=== PATIENT | female | born 1950 | race Hispanic/Latino ===

== ENCOUNTER → 2020-06-21 08:09 | Outpatient (CLI) | payer MEDICARE, SELFPAY ==
[2020-06-21] MEDS: COVID-19 VACC #1, MRNA(MOD) 100 MCG/0.5 ML VIAL IM (08:18)
== END ==
PROVIDERS: Visit Provider Internal Medicine
DX: Z23 Encounter for immunization (principal)
CPT/HCPCS: 0011A; 91301

== ENCOUNTER → 2020-07-19 08:02 | Outpatient (CLI) | payer MEDICARE, SELFPAY ==
[2020-07-19] MEDS: COVID-19 VACC #2, MRNA(MOD) 100 MCG/0.5 ML VIAL IM (08:08)
== END ==
PROVIDERS: Visit Provider Internal Medicine
DX: Z23 Encounter for immunization (principal)
CPT/HCPCS: 0012A; 91301

== ENCOUNTER → 2022-09-27 12:09 | Outpatient (CLI) | payer MEDICARE, OTHER, SELFPAY ==
[2022-09-27 13:49] LABS: Add Manual Diff / Slide Review NO; Basophils Absolute Auto 0 /uL (0-100); Eosinophils Absolute Auto 100 /uL (0-450); Eosinophils Percent Auto 2.4 % (2-4); Hematocrit 40.3 % (36-46); Hemoglobin 13.4 g/dL (12.0-16.0); Lymphocytes Absolute Auto 1300 /uL (1100-4500); Lymphocytes Percent Auto 30.8 % (25-40); Mean Corpuscular HGB Conc 33.1 % (30-36); Mean Corpuscular Hemoglobin 28.6 PG (26-34); Mean Corpuscular Volume 86.4 fL (80-100); Monocytes Absolute Auto 300 /uL (0-900); Monocytes Percent Auto 7.8 % (3-14); Neutrophils Absolute Auto 2500 /uL (1500-7000); Platelet Count 241 X10^3/uL (150-400); Red Blood Cell Count 4.67 X10^6/uL (4.0-5.2); Red Cell Distribution Width 14.6 % (11.6-14.8); White Blood Cell Count 4.3 X10^3/uL (4.5-11.0)
[2022-09-27 14:26] LABS: BUN Creatinine Ratio 14.3 (6-22); Blood Urea Nitrogen 10 mg/dL (7-17); Carbon Dioxide 36 mmol/L (22-32); Chloride 100 mmol/L (98-107); Estimated Glomerular Filt Rate > 60 mL/min (>60); Glucose 67 mg/dL (80-110); HEMOLYSIS < 15 (0-50); Potassium 4.1 mmol/L (3.4-5.1); Sodium 140 mmol/L (137-145)
[2022-09-27 14:40] LABS: Appearance Urine UA CLEAR; Bilirubin Urine UA NEGATIVE (NEGATIVE); Color Urine UA YELLOW; Glucose Urine UA NEGATIVE (Negative); Ketones Urine UA NEGATIVE (NEGATIVE); Leukocyte Esterase Urine UA TRACE (NEGATIVE); Nitrite Urine UA NEGATIVE (Negative); Occult Blood Urine UA NEGATIVE (Negative); Protein Urine UA NEGATIVE (Negative); Specific Gravity Urine UA <=1.005 (1.000-1.035); Urobilinogen Urine UA 0.2 E.U./dL (0.2)
[2022-09-27 14:48] LABS: pH Urine UA 7.5 (4.5-8.0)
[2022-09-27 14:57] LABS: Bacteria Urine Few (2-10); Culture Indicated Urine Specimen Cultured; RBC Urine 1-5/HPF (0-5/HPF); Squamous Epithelial Cell Urine 1-5 /HPF (0-5/HPF); WBC Urine 1-5/HPF (0-5/HPF)
[2022-09-28 08:39] LABS: x Labcorp Estim. Avg Glu (eAG) 117 mg/dL (.); x Labcorp Hemoglobin A1c 5.7 % (4.8-5.6)
== END ==
PROVIDERS: PCP Physician Assistant Medical; Referring Provider Orthopaedic Surgery; Visit Provider Orthopaedic Surgery
DX: Z01.818 Encounter for other preprocedural examination (principal); R73.9 Hyperglycemia, unspecified; Z01.812 Encounter for preprocedural laboratory examination; N39.0 Urinary tract infection, site not specified
CPT/HCPCS: 36415; 80048; 81001; 83036; 85025; 87086; 93005; 93010

== ENCOUNTER 2022-10-29 08:21 | Day surgery (SDC) | payer MEDICARE, SELFPAY ==
[2022-10-21 09:39] VITALS: BMI 36.3
[2022-10-29] VITALS (13 sets, daily range): BP systolic 107–168; BP diastolic 51–83; PULSE 43–74; RESP 10–18; TEMP 36.2–36.5; O2SAT 95–100; BMI 34.9
--- NOTE | 2022-10-29 08:28 | DI.RAD.S_ITS ---
PROCEDURE: XR HIP W PEL IF DONE RT 2V INDICATIONS: DON TECHNIQUE: AP pelvis and lateral view of the right hip acquired. COMPARISON: None. FINDINGS: Bones: Patient is status post right hip arthroplasty, with hardware components in expected positions. The hip joint appears congruent. The visualized bony structures appear intact. Soft tissues: Overlying postoperative changes are noted. No suspicious soft tissue densities. IMPRESSION: Expected postsurgical change for right hip arthroplasty. Dictated by: Roselia Mason MD, PhD on 10/29/2022 at 15:04 Approved by: Roselia Mason MD, PhD on 10/29/2022 at 15:04
[2022-10-29] MEDS: VANCOMYCIN 1,000 MG/200 ML PIGGYBACK 200 MG IV (09:36)
[2022-10-29] MEDS: ACETAMINOPHEN 325 MG TABLET 975 MG PO (09:36)
[2022-10-29] MEDS: LACTATED RINGERS 1,000 ML 42 ML IV ×2 (09:36→12:23)
--- NOTE | 2022-10-29 10:45 | PM.PREOP ---
Pre-operative Note Interval Note History & Physical reviewed/Exam performed by Physician: Yes Changes to H&P: No
--- NOTE | 2022-10-29 10:46 | PM.OP.1 ---
Operative Date/Time/Diagnoses Date of procedure: 10/29/22 Time of procedure: 11:20 Pre-op diagnosis: Right hip OA Post-op diagnosis: same Procedure & Clinicians Procedure: Right total hip arthroplasty posterior approach Same procedure as scheduled: Yes Indications: The patient has had progressively worsening right hip pain with radiographic changes consistent with arthritis. Non-operative management has failed and the patient has requested total hip replacement. The risks, benefits and alternatives to surgery were discussed with the patient prior to proceeding. Risks discussed included, but were not limited to, failure to relieve pain, leg length discrepancy, dislocation, stiffness, infection, nerve damage, deep venous thrombosis, pulmonary embolism, stroke, coma, heart attack, permanent paralysis and , as well as the potential need for eventual revision of the prosthetic. Surgeon: Katelyn Aguilera Entertainer & Comic: Benjamin Argueta Anesthesia Type: Spinal Operative Notes Findings: Severe right hip osteoarthritis, adequate stability, Closure Type: primary Specimen(s): none sent Prosthetic devices, grafts, tissues, transplants, or devices: Aguilera and nephew R3 50, neutral poly liner, one 6.5 mm screw, 32 by -3 Oxinium head, size 3 polar stem standard with collar Estimated Blood Loss (mL): 250 Blood products transfused: none Procedure in detail: The patient was seen in the pre-operative area, where the patient identified the right hip as the operative site and this was marked with my initials. The patient received pre-operative antibiotics and was taken to the operating room and placed on the operative table in the left lateral decubitus position after satisfactory anesthesia. A fulling mill operator out was performed. The right leg was prepared from the ankle to the iliac crest with ChloroPrep in the usual fashion and draped through sterile drapes. A PA was used during the procedure and was essential for retraction and safe implantation of the components. They were also helpful for hemostasis an intraoperative positioning. The hip was approached through an approximately 20 cm incision centered over the greater trochanter and curving gently posteriorly as it went proximally. This was carried sharply to the fascia cata, which was divided and retracted with a self retaining retractor. The trochanteric bursa was excised with care being taken to avoid the sciatic nerve, which was identified and protected throughout the case. The short external rotators were incised and the capsulomuscular flap was raised and tagged for later repair. The hip was dislocated, and a femoral neck osteotomy performed approximately 15 mm above the lesser trochanter. Retractors were placed around the femur. The canal was opened with a box cutting osteotome, followed by a T handled reamer and a lateralizing reamer. The chili pepper broach was then used, followed by sequential broaching until there was good stability of the broach in the femur. Retractors were placed to expose the acetabulum. The labrum and central soft tissues were removed. Reaming was performed initially going up in 2 mm increments, then 1 mm increments until good bite was obtained with an odd sized reamer. The cup 1 mm larger than the last reamer was then inserted using the appropriate anteversion guides. It was further stabilized with a single screw. A trial neutral liner was placed. The broach was placed in the canal. A trial head and neck were then placed and the hip relocated and checked for leg length and stability. An intraoperative film confirmed the component position and no evidence of fracture. The patient was stable in the position of sleep, of squatting, and could be put through a range of motion with 45 degrees internal rotation without dislocation. At 90 degrees flexion, internal rotation to 70 was possible before dislocation. This was felt to be satisfactory and the appropriate components were opened, and the trials were removed. The acetabular liner was impacted into position. The final stem was then impacted into the prepared femoral canal. A brief Betadine soak was performed while trialing with head options. The hip was meticulously irrigated with normal saline. Finally the femoral head was impacted onto the stem. The acetabulum was cleared of all material and the hip relocated one final time. The capsulomuscular flap was then repaired to the greater trochanter though an awl hole using the tag sutures. The short external rotators were repaired with a nonabsorbable suture. The fascia cata was closed with Vicryl. The subcutaneous layer was closed with barbed sutures and skin oliver. A cesar dressing was applied and the patient was taken to recovery having tolerated the procedure well. Complications: none Post-operative Condition: stable Disposition: Acute Care Plan for aftercare: The patient will be maintained on a standard total hip replacement protocol with weight bearing as tolerated and posterior hip precautions. The patient will receive Aspirin and sequential compression devices for DVT prophylaxis. The patient will be discharged home when safe for the home environment.
--- NOTE | 2022-10-29 11:00 | DI.RAD.S_ITS ---
PROCEDURE: XR PELVIS 1-2V INDICATIONS: INNER OP RT HIP TECHNIQUE: Intra-operative view of the pelvis and hip acquired. COMPARISON: None. FINDINGS: Bones: Intraoperative devices prior to placement of arthroplasty prostheses are in expected positions. No fractures or suspicious bony lesions. Soft tissues: Overlying surgical retractors are present, along with other intraoperative changes. IMPRESSION: Intraoperative image shows right total hip arthroplasty in progress. Dictated by: Jareth Abrams M.D. on 10/29/2022 at 15:16 Approved by: Jareth Abrams M.D. on 10/29/2022 at 15:16
[2022-10-29] MEDS: CEFAZOLIN 2 GM/100 ML PREMIX 100 ML IV ×2 (11:35→20:10)
[2022-10-29] MEDS: TRANEXAMIC ACID 1,000 MG VIAL 2000 MG INJ ×2 (11:40→13:12)
--- NOTE | 2022-10-29 12:03 | SUR.OPER ---
Lateral on padded OR bed. Gel axillary roll. Arms secured on padded armboard with pillow supporting top arm. Padded hip positioner braces x4 - anterior and posterior chest and pelvis. Additional gel pad used anterior pelvis. Gel pad under bottom leg from knee to foot and secured with tape over sheet.
[2022-10-29] MEDS: SODIUM CHLORIDE IRRIG SOLUTION 250 ML, POVIDONE-IODINE SPONGE STICKS 1 APPLIC IRR (12:07)
[2022-10-29] MEDS: BUPIVACAINE LIPOSOME 266 MG/20 ML VIAL INJ (12:09)
[2022-10-29] MEDS: BUPIVACAINE 0.5% (PF) 30 ML VIAL INJ (12:10)
[2022-10-29] MEDS: EPINEPHrine 1 MG/ML TOP (12:18)
[2022-10-29] MEDS: ACETAMINOPHEN 325 MG TABLET 650 MG PO (16:52)
[2022-10-29] MEDS: IBUPROFEN 400 MG TABLET PO ×2 (16:53→20:13)
[2022-10-29] MEDS: OXYCODONE IR 5 MG TABLET PO (16:53)
[2022-10-29] MEDS: LACTATED RINGERS 1,000 ML 100 ML IV (17:01)
[2022-10-29] MEDS: ASPIRIN EC 81 MG TABLET PO (20:13)
[2022-10-30 01:29] VITALS: BP 154/76; PULSE 65; RESP 18; TEMP 37.3; O2SAT 97
[2022-10-30] MEDS: CEFAZOLIN 2 GM/100 ML PREMIX 100 ML IV (03:00)
[2022-10-30] MEDS: IBUPROFEN 400 MG TABLET PO ×2 (03:01→11:14)
[2022-10-30] MEDS: ACETAMINOPHEN 325 MG TABLET 650 MG PO ×2 (03:02→08:42)
[2022-10-30] MEDS: OXYCODONE IR 5 MG TABLET PO ×3 (03:02→11:14)
[2022-10-30 05:00] VITALS: BP 106/64; PULSE 72; RESP 18; TEMP 36.6; O2SAT 100
[2022-10-30 06:28] LABS: Hematocrit 35.3 % (36-46)
[2022-10-30 08:00] VITALS: BP 134/67; PULSE 60; RESP 16; TEMP 36.2; O2SAT 96
--- NOTE | 2022-10-30 08:31 | PM.DS.1 ---
History of Present Illness History of Present Illness Date Patient Seen: 10/30/22 Chief complaint: S/p R DON, posterior Narrative: Patient is resting comfortably in bed this morning. She complains of some pain to the right hip and thigh, though she states that her pain is well controlled with medication. She is looking forward to working with physical therapy, has been up to the commode with no issues. Patient would like to go home today if possible. Denies fever, chills, chest pain, shortness of breath, nausea, vomiting. Discharge Providers Provider Discharge Date: 10/30/22 Primary care physician: Nohemi Johnson PA-C Consults: 10/21/22 10:54 Consult to Anesthesiology Routine Comment: Consulting Provider: Anesthesiologist Reason for consultation: PAC courtesy re: Abnormal pre-op EKG 10/29/22 08:28 Consult to Anesthesiology Routine Comment: Consulting Provider: Anesthesiologist Reason for consultation: Regional block for post operative pain control 10/29/22 14:27 Consult to Discharge Planning Routine Comment: Consult to Occupational Therapy Evaluate & Treat Comment: Physician Instructions: Evaluate and treat Consult to Physical Therapy Evaluate & Treat Comment: Physician Instructions: post op DON protocol Discharge provider: Manasa Brizuela PA-C Summary Hospital Course Discharge Diagnosis: s/p R DON, posterior Hospital Course: Operative Date/Time/Diagnoses Date of procedure: 10/29/22 Time of procedure: 11:20 Pre-op diagnosis: Right hip OA Post-op diagnosis: same Procedure & Clinicians Procedure: Right total hip arthroplasty posterior approach Same procedure as scheduled: Yes Indications: The patient has had progressively worsening right hip pain with radiographic changes consistent with arthritis. Non-operative management has failed and the patient has requested total hip replacement. The risks, benefits and alternatives to surgery were discussed with the patient prior to proceeding. Risks discussed included, but were not limited to, failure to relieve pain, leg length discrepancy, dislocation, stiffness, infection, nerve damage, deep venous thrombosis, pulmonary embolism, stroke, coma, heart attack, permanent paralysis and , as well as the potential need for eventual revision of the prosthetic. Surgeon: Katelyn Aguilera Manager Integrated: Benjamin Argueta Anesthesia Type: Spinal Operative Notes Findings: Severe right hip osteoarthritis, adequate stability, Closure Type: primary Specimen(s): none sent Prosthetic devices, grafts, tissues, transplants, or devices: Aguilera and nephew R3 50, neutral poly liner, one 6.5 mm screw, 32 by -3 Oxinium head, size 3 polar stem standard with collar Estimated Blood Loss (mL): 250 Blood products transfused: none Status at Discharge Cognitive/behavioral status at discharge: oriented Functional status at discharge: uses cane/walker Overall status at discharge: patient is progressing back to baseline Exam Vital Signs (past 8 hours): - 10/30/22 01:29 10/30/22 05:00 Temperature 99.1 F 97.9 F Pulse Rate 65 72 Respiratory Rate 18 18 Blood Pressure 154/76 H 106/64 Pulse Oximetry 97 100 Oxygen Flow Rate 0 0 Oxygen Delivery Method Room Air Oxygen Flow Rate 0 Narrative Exam Narrative: Pleasant 72-year-old female. Awake, alert, and oriented. Intraoperative right hip bandage clean, dry, and intact. Mild pain to palpation of right hip and thigh. No appreciable erythema or bruising at this time. Strength and sensation intact to bilateral lower extremities. Bilateral calves soft, compressible, nontender with no palpable cords or masses. Objective Labs 10/30/22 06:15 Labs: Laboratory Results - last 24 hr 10/30/22 06:15 Hgb 12.0 Hct 35.3 L PFSH Medical History Anesthesia complication Borderline high blood pressure History of COVID-19 (09/2021) Osteoarthritis Sleep apnea Surgical History Hx of colonoscopy Hx of right breast biopsy (~2001) Social History household members: spouse Smoking Status: Never smoker alcohol intake: never Discharge Assessment & Plan Assessment and Plan Assessment: Patient is progressing as expected after right posterior total hip arthroplasty. Plan of Treatment: Plan to work with physical therapy today. Patient may discharge to home if safe and cleared by physical therapy. Continue multimodal pain regimen. Posterior hip precautions. Attending physical therapy as outpatient. Follow up with Orthopedics 2 weeks after surgery. Keep dressing clean, dry, and intact until this time. Discharge Plan Discharge Plan Patient Disposition: Home Provider Discharge Comment: Discharge if safe and cleared by PT Discharge orders & Medications Discharge Orders: Discharge (Order); Ordered 10/30/22 Ordered By: Manasa Brizuela Prescriptions: New oxycodone 5 mg Tablet 5 mg PO Q3H PRN (Reason: Pain, Moderate (4-6)) Qty: 40 0RF acetaminophen 325 mg Tablet 650 mg PO Q6H Qty: 120 0RF aspirin 81 mg Tablet,Delayed Release (Dr/Ec) 81 mg PO BID Qty: 84 0RF Changed ibuprofen 200 mg Tablet 400 mg PO Q4H PRN (Reason: Pain) Qty: 120 0RF Follow up/Referrals: Katelyn Aguilera MD [Physician] - As previously scheduled Nohemi Johnson PA-C [Primary Care Provider] - Diet/Activity/Treatments Diet: Diet as Tolerated Activity: Up and walking as tolerated. Posterior hip precautions. Cold/Heat Therapy: Ice to hip as needed Skin/Wound/Dressing Care Report to your healthcare provider any signs of infection, such as:: chills, fever, night sweats, unusual drainage and unusual redness Dressing: Keep dressing intact until 2 week follow up visit with orthopedics. If the dressing becomes saturated before that time please call our office for dressing change. Visit Report/Discharge Packet Instructions: DI for Hip Replacement, DI for Constipation, How to Prevent Falls Stand Alone Forms: Patient Portal/API, [facility] RAUL Drain, Surgery Discharge Discharge Data Primary Care Provider: Nohemi Johnson Attending Provider: Katelyn Aguilera
[2022-10-30] MEDS: ASPIRIN EC 81 MG TABLET PO (08:42)
[2022-10-30] MEDS: DOCUSATE 100 MG CAPSULE PO (08:43)
--- NOTE | 2022-10-30 09:43 | OT.IP.EVAL ---
Addendum entered and electronically signed by Jessica Bliss OT 10/30/22 12:29: edit Original Note: Current Diagnoses Unilateral primary osteoarthritis, right hip (10/29/22) Surgery Performed Operation Date: 10/29/22 10:45 Actual Procedures p Total Hip Arthroplasty(Right) - Katelyn Aguilera MD Past Medical History (Last Reviewed 10/30/22 @ 08:35 by Manasa Brizuela PA-C) Anesthesia complication Borderline high blood pressure History of COVID-19 (09/2021) Osteoarthritis Sleep apnea Surgical History (Last Reviewed 10/30/22 @ 08:35 by Manasa Brizuela PA-C) Hx of colonoscopy Hx of right breast biopsy (~2001) Occupational Therapy Inpatient Evaluation/Re-Eval M1 PT/OT-IP Prior Functional Status Start: 10/30/22 12:05 Freq: NEEDED Status: Active Protocol: Document 10/30/22 09:05 [facility] (Rec: 10/30/22 12:21 [facility] [id number]) Medical Review Prior Functional Status Medical History Reviewed Yes Diet/Fluid Consistency Regular Communication WNLs Mobility and Gait I Activities of Daily Living and IADL's Pt states had pain with ADl needs but able to do independently. Social History Household Members spouse Living Arrangements House Number of Floors (Floors) One Floor Number of Stairs To Enter/Railing? 3 platform steps and right rail to enter Home Environment High Toilet,Built-In Shower Seat Home Equipment Front Wheel Walker,Four Wheel Walker,Straight Cane,Bedside Commode,Shower Seat with Backrest,Hand Held Shower,Long Handled Sponge,Long Handled Shoe Horn,Technician Inventory Specialist,Sock Aid Employment Status Retired M2 OT-IP Current Condition Start: 10/30/22 12:05 Freq: Status: Active Protocol: Document 10/30/22 09:05 [facility] (Rec: 10/30/22 12:21 [facility] [id number]) Occupational Therapy Current Condition Current Condition Evaluation Date 10/30/22 Treatment Diagnosis S/P RTHA posterior approach Diagnosis Onset Date 10/29/22 Post Operative Precautions Posterior Hip Precautions No Hip Flexion > 90 degrees,No Hip Internal Rotation,No Hip Adduction M3 OT- IP Subjective and Pain Start: 10/30/22 12:05 Freq: Status: Active Protocol: Document 10/30/22 09:05 [facility] (Rec: 10/30/22 12:21 [facility] [id number]) OT- Subjective Occupational Therapy Visit Type Type Initial Evaluation Visit Start Time 09:05 Visit Stop Time 09:43 Total Visit Minutes 38 Occupational Therapy Visit Comments Patient Comments Pt agreed to get up and wanting to get dressed. Patient/Caregiver Goals To go home. OT Pain Assessment Pain When Pain Assessed At Rest Pain Present Pain Present Denied Pain M4 OT- IP ADL's Start: 10/30/22 12:05 Freq: Status: Active Protocol: Document 10/30/22 09:05 [facility] (Rec: 10/30/22 12:21 [facility] [id number]) OT [id number]-[id number]-[id number] General Evaluation Self-Feeding Ability Independent OT ADL-Grooming General Evaluation Grooming Ability Independent OT ADL-Oral Care Comments Oral Care Comments Not performed. OT ADL-Dressing General Eval Upper Body Dressing Ability Independent Lower Body Dressing Ability Standby Assistance Comments OT Dressing Comments Pt able to use the textile technical officer to assist to get dressed. OT ADL-Toileting General Evaluation Toileting Ability Standby Assistance Comments OT Toileting Comments Educated to pt to best to stand to wipe, use of wet one and to wear a pad/brief so not having to ruiz to the bathroom. OT ADL-Bathing Comments OT Bathing Comments Not performed. M5 OT- IP IADL's Start: 10/30/22 12:05 Freq: Status: Active Protocol: Document 10/30/22 09:05 [facility] (Rec: 10/30/22 12:21 [facility] [id number]) OT-Instrumental Activities of Daily Living Deficits IADL Deficits Identified Deficits Home Safety Awareness Awareness of Need for Assistance at Home Good Awareness Ability to Problem Solve Emergency Able to Problem Solve Situations Home Safety Comments Pt's daughter to take turns to assist her at home. Pt's is there to assist but have DM. Meal Preparation Meal Preparation Caregiver Provides Assist Conceptor Conceptor Caregiver Provides Assist M6 OT- IP Functional Cognition Start: 10/30/22 12:05 Freq: Status: Active Protocol: Document 10/30/22 09:05 [facility] (Rec: 10/30/22 12:21 [facility] [id number]) Cognitive Factors Limiting Selfcare Function Cognitive Ability Level of Alertness Alert Patient Orientation Name,Age,Birthday,Month,Date, Year,Day of Week,Place, Situation Attention Span Ability Capable of Focused Attention, Capable of Sustained Attention Ability to Follow Commands Able to Follow One Step Commands Cognitive Comments Cognitive Assessment Comments Pt able to safely follow her hip precautions for mobility and ADl needs. OT- Vision and Hearing OT- Hearing Assessment OT- Hearing Assessment WFL M7 OT- IP Mobility and Balance Start: 10/30/22 12:05 Freq: Status: Active Protocol: Document 10/30/22 09:05 [facility] (Rec: 10/30/22 12:21 [facility] [id number]) OT- Bed Mobility Assessment Supine to Sit Supine to Sit Assist Standby Assistance OT-Transfer Assessment Sit to and From Stand Sit to and from Stand Contact Guard Assistance Transfers Transfer Ability Standby Assistance Technique Transfer Destination Bed,Chair Transfer Technique Stand Step Pivot Devices Transfer Assistive Devices Gait Belt,Front Wheeled Walker Comments Mobility Comments CGA to stand and SBA with FWW in the room. Pt tends to use the FWW like a standard FWW at this time. Encouraged pt to roll the FWW but pt preferring to pick it up instead. OT- Balance Assessment Sitting Balance and Reactions Static Sitting Balance Ability Normal Dynamic Sitting Balance Ability Good Standing Balance and Reactions Static Standing Balance Ability Good Dynamic Standing Balance Ability Fair M9 OT- IP Assessment and Plan Start: 10/30/22 12:05 Freq: Status: Active Protocol: Document 10/30/22 09:05 [facility] (Rec: 10/30/22 12:21 [facility] [id number]) OT Summary Assessment and Plan Potential Rehabilitation Potential Excellent Analytic Complexity at Evaluation Low Summary OT Impairments Strength,Balance,Functional Mobility,Dressing,Bathing Progress Towards Goals Progressing Toward Goals Assessment Summary Pt low complexity and main barriers are decreased balance and will needing assist for showering and assist to get up from lower surfaces. Pt has all OT equipment needs and did well for getting dressed today. Pt to go home with assist and have outpt PT. Goals Dressing Goal Independent Toileting Goal Independent Bathing Goal Independent Toilet Transfer Goal Independent Shower Transfer Goal Independent Days to Meet Goals 7 Frequency of Treatment Frequency Of Treatment Once a Day Treatment Plan OT Treatment Plan ADL Training,Functional Mobility,Patient/Family Education,Discharge Planning Discharge Recommendations OT Discharge Recommendations Home with Assistance, Outpatient PT Transportation Needs at Discharge Private Vehicle
--- NOTE | 2022-10-30 10:59 | PT.IIE ---
Current Diagnoses Unilateral primary osteoarthritis, right hip (10/29/22) Surgery Performed Operation Date: 10/29/22 10:45 Actual Procedures p Total Hip Arthroplasty(Right) - Katelyn Aguilera MD Surgical History (Last Reviewed 10/30/22 @ 08:35 by Manasa Brizuela PA-C) Hx of colonoscopy Hx of right breast biopsy (~2001) Medical History (Last Reviewed 10/30/22 @ 08:35 by Manasa Brizuela PA-C) Anesthesia complication Borderline high blood pressure History of COVID-19 (09/2021) Osteoarthritis Sleep apnea Physical Therapy Inpatient Evaluation/Re-Eval M1 PT/OT-IP Prior Functional Status Start: 10/30/22 08:38 Freq: NEEDED Status: Active Protocol: Document 10/30/22 10:15 MB (Rec: 10/30/22 10:59 MB [id number]) Medical Review Prior Functional Status Medical History Reviewed Yes Diet/Fluid Consistency Regular Communication WNLs Mobility and Gait I Activities of Daily Living and IADL's I Social History Household Members spouse Living Arrangements House Number of Floors (Floors) One Floor Number of Stairs To Enter/Railing? 3 steps and right rail to enter Home Environment Standard Height Toilet,Built- In Shower Seat Home Equipment Front Wheel Walker,Four Wheel Walker,Straight Cane,Bedside Commode,Long Handled Sponge, Amusement Park Ride Mechanic,Sock Aid Employment Status Retired M2 PT-IP Current Condition Start: 10/30/22 08:38 Freq: NEEDED Status: Active Protocol: Document 10/30/22 10:15 MB (Rec: 10/30/22 10:59 MB [id number]) Physical Therapy Current Condition Current Condition Evaluation Date 10/30/22 Treatment Diagnosis R posterior hip replacement Onset Date 10/29/22 M3 PT-IP Subjective Start: 10/30/22 08:38 Freq: NEEDED Status: Active Protocol: Document 10/30/22 10:15 MB (Rec: 10/30/22 10:59 MB [id number]) Subjective Physical Therapy Visit Type Type Initial Evaluation Visit Start Time 10:15 Visit Stop Time 10:40 Total Visit Minutes 25 Number of MECHANICAL INSPECTOR Visits 0 Physical Therapy Visit Comments Patient Comments Pt states she is doing well and ready to go home. Therapy Pain Assessment Pain When Pain Assessed During Mobility Pain Present Pain Present Pain Reported Location Right Hip Intensity 4 Scale Used Numeric (0 - 10) Description Aching M4 PT-IP Mobility and Gait Start: 10/30/22 08:38 Freq: NEEDED Status: Active Protocol: Document 10/30/22 10:15 MB (Rec: 10/30/22 10:59 MB [id number]) PT-Bed Mobility Assessment Supine to Sit Supine to Sit Independent Sit to Supine Sit to Supine Independent Scooting Scooting to Edge of Bed Independent Scooting Up and Down in Bed Independent PT-Transfer Assessment Sit to and From Stand Sit to and from Stand Independent,Standby Assistance ,Use of Upper Extremities Equipment Transfer Assistive Device Gait Belt,Front Wheeled Walker Orthotic/Prosthetic Devices or Brace: No Transfers Transfer Destination Bed Transfer Technique Stand Step Pivot Transfer Ability Level of Assist Standby Assistance Comments Mobility Comments Pt initially requires cues for hand placement to stand up from the bed (push up from the bed and not from the walker). She progresses to mod I for transfers for third stand to sit to recliner. She uses RW. Pt initially grabs for the bed rail and then is able to perform bed mobility without the rail Gait Assessment Gait Gait Assistance Required: Independent,Standby Assistance Distance (Feet) 70 Able to Maintain Weight Bearing Status Yes During Gait Assistive Devices Assistive Device Gait Belt,Front Wheeled Walker Orthotic/Prosthetic Devices or Brace: No Gait Deviations General Gait Pattern Antalgic,Decreased Stride Length,Decreased Feet Clearance,Step-to Gait Factors Limiting Gait Function Factors Limiting Gait Function Decreased Activity Tolerance, Decreased Strength,Pain Comments Gait Comments Pt gait trains 70'x2 with initially SBA and RW and then up to mod I with RW. Her wanda is slow and she has step-to wanda with non- surgical left leg first and then surgical leg. Stair Climbing Assessment Evaluation Level of Assist On Stairs Standby Assistance,1 Person Assistance Devices Stair Climbing Assistive Devices Right Railing Technique/Endurance Stair Climbing Direction Ascend and Descend Stair Climbing Technique Step to Step Number of Steps Climbed 3 Query Text: Stair Climbing Set # Repetitions (reps) 1 Comments Stair Climbing Comments Pt holds onto right rail with both hands and faces the rail. She ascends with left foot first ascending and descends right foot first descending and uses step-to pattern. PT-Balance Assessment Sitting Balance and Reactions Static Sitting Balance Ability Good Dynamic Sitting Balance Ability Good Standing Balance and Reactions Static Standing Balance Ability Good Dynamic Standing Balance Ability Good Device Used RW Comments Other Balance Tests/Deviations/Treatment UE support for dynamic sitting : . M5 PT-IP Objective Assessments Start: 10/30/22 08:38 Freq: NEEDED Status: Active Protocol: Document 10/30/22 10:15 MB (Rec: 10/30/22 10:59 MB [id number]) Orientation Orientation/Cognition Level of Alertness Alert Orientation Name,Age,Birthday,Month,Date, Year,Day of Week,Place, Situation Language Function Ability No Deficits Noted Safety Awareness Understands Safety Issues Memory Description No Deficits Noted Gross Range of Motion Upper Extremity ROM Impairments Defer to OT Lower Extremity ROM Assessment Right Impaired Strength Comments Strength Comments MMT deferred RLE post-op day one Sensation Assessment Sensation Gross Sensation WNL Muscle Tone Muscle Tone WNL Yes M6 PT-IP Treatment Start: 10/30/22 08:38 Freq: NEEDED Status: Active Protocol: Document 10/30/22 10:15 MB (Rec: 10/30/22 10:59 MB [id number]) Physical Therapy Treatment Education Education Provided Precautions,Weight Bearing Status,Safety M7 PT-IP Assessment and Plan Start: 10/30/22 08:38 Freq: NEEDED Status: Active Protocol: Document 10/30/22 10:15 MB (Rec: 10/30/22 10:59 MB [id number]) PT Summary Assessment and Plan Potential Rehabilitation Potential Excellent Status of Condition at Evaluation Stable Summary Progress Towards Goals Goals Met Assessment Summary Pt is a 72 y/o female presenting with good mobility post-op day one right THR. She understands right posterior hip precautions. She will d/c home with her family today and is set-up with OPPT. No further acute PT needs. Frequency of Treatment Frequency Of Treatment Discharge Precautions Posterior Hip Precautions No Hip Flexion > 90 degrees,No Hip Internal Rotation,No Hip Adduction Weight Bearing Status Weight Bearing Status Weight Bear as Tolerated Recommendations To Nursing Amount of Assist Needed Standby Assistance,1 Person Assist Discharge Recommendations PT Discharge Recommendations Home with Assistance, Outpatient PT Transportation Needs at Discharge Private Vehicle
--- NOTE | 2022-10-30 14:03 | PC.NURSE ---
Discharge: Pt is d/c to home, feels ready. Has seen PT and OT and received there instruction. Saw this am and doctor gave d/c instruction. Pt tolerates diet w/out problems. Vds w/out diff. Po Pain have been effective. Knows her hip precautions. Vds w/out diff. Discharge packet given and reviewed. Rx has been esent. Questions asnswered. Pt d/c to home via auto with family.
== END 2022-10-30 11:20 | disposition home or self-care (01) ==
LOC: OR 08:26 → AC 08:26
PROVIDERS: PCP Physician Assistant Medical; Referring Provider Orthopaedic Surgery; Visit Provider Orthopaedic Surgery
PROC: 0SR90JZ Replacement of Right Hip Joint with Synthetic Substitute, Open Approach (ICD-10-PCS; CPT 27130; principal; 2022-10-29 10:45)
DX: M16.11 Unilateral primary osteoarthritis, right hip (principal)
CPT/HCPCS: 27130; 36415; 72170; 73502; 85014; 85018; 97161; 97165; 97535; C1776; C9290; J0171; J0690; J1100; J2405; J2704

== ENCOUNTER → 2022-11-11 16:15 | Outpatient (CLI) | payer MEDICARE, SELFPAY ==
[2022-10-29 15:08] VITALS: BMI 34.9
--- NOTE | 2022-11-11 16:19 | DI.US.S_ITS ---
PROCEDURE: US PERIPH VENOUS LOW EXTREM RT INDICATIONS: SWELLING/PAIN TECHNIQUE: Real-time imaging, as well as color and pulse Doppler interrogation, were performed of the lower extremity deep veins from the inguinal ligament to the popliteal fossa, with documentation of the visualized calf veins. COMPARISON: None. FINDINGS: The common femoral, femoral, popliteal, and the visualized calf veins are normally compressible, and free of intraluminal thrombus. Color and pulse Doppler demonstrate normal phasic intraluminal flow. There is normal augmentation response to distal compression maneuver. IMPRESSION: No findings of lower extremity deep venous thrombosis. Dictated by: Hector Nails M.D. on 11/11/2022 at 17:05 Approved by: Hector Nails M.D. on 11/11/2022 at 17:05
== END ==
PROVIDERS: PCP Physician Assistant Medical; Referring Provider Physician Assistant; Visit Provider Physician Assistant
DX: M79.89 Other specified soft tissue disorders (principal); M79.661 Pain in right lower leg; Z96.641 Presence of right artificial hip joint
CPT/HCPCS: 93971